=== PATIENT | female | born 1950 | race Caucasian/White ===

== ENCOUNTER 2020-07-11 12:00 | Observation (INO) ==
[2020-07-11 11:13] LABS: BUN/Creatinine Ratio 32 (6-26); Blood Urea Nitrogen 32 mg/dL (8-23); Calcium 10.4 mg/dL (8.6-10.3); Carbon Dioxide 25 mEq/L (23-29); Chloride 107 mEq/L (98-107); Glucose 119 mg/dL (70-105); Osmolality,Calculated 298 (280-300); Potassium 3.3 mEq/L (3.5-5.1); Sodium 140 mEq/L (136-145); eGFR For African Americans > 60 (> 60); eGFR For Non-African Americans 54 (> 60)
[~2020-07-11 12:00] MED LIST: *HR* HYDROcodone/Acet 5/325 mg TABLET PO PRN; *HR* Heparin 10,000 UNIT/10 ML VIAL ONE; 0.9 % Sodium Chloride 2,000 ML ONE; Albuterol Neb 0.63 MG/3 ML VIAL IH PRN; Aspirin 81 MG TAB.CHEW PO ONE; Aspirin desensitization 1 mg/ml PO ONE; Aspirin desensitization 4 mg/ml PO ONE; EPINEPHrine 1 MG/ML VIAL IM PRN; Famotidine 20 MG/2 ML VIAL IVP PRN; Heparin 1,000 UNITS/500 mL 500 ML ONE; ISOVUE-370 200 ML INFUS..BTL ONE; Loratadine 10 MG TABLET PO PRN; Nitroglycerin 0.4 MG TAB.SUBL SL PRN; Nitroglycerin 1,000 MCG/10 ML VIAL IV ONE; methylPREDNISolone 125 MG/2 ML VIAL IVP PRN
[2020-07-11] MEDS ORDERED: *HR* FentaNYL (PF) 100 MCG/2 ML VIAL ONE (12:02)
[2020-07-11] MEDS ORDERED: *HR* Midazolam HCl 2 MG/2 ML VIAL ONE (12:02)
[2020-07-11] MEDS ORDERED: *HR* Heparin 10,000 UNIT/10 ML VIAL ONE (12:05)
[2020-07-11] MEDS ORDERED: Acetaminophen 325 MG TABLET PO PRN (12:12)
[2020-07-11 12:14] VITALS: BP 142/62
[2020-07-11] MEDS ORDERED: EPINEPHrine 1 MG/ML VIAL IV PRN (17:07)
[2020-07-11] MEDS ORDERED: Budesonide/Formoterol 160/4.5 1 PUFF INH IH SCH (22:00)
[2020-07-12] MEDS ORDERED: Cholecalciferol (D-3) 1,000 UNIT (25MCG) TABLET PO SCH (09:00)
[2020-07-12] MEDS ORDERED: NON-FORMULARY MEDICATION 1 EACH EACH (Fluticasone/Umeclidin/Vilanter [Trelegy Ellipta 100- IH SCH (09:00)
[2020-07-12] MEDS ORDERED: (Roflumilast [Daliresp] 500 MCG Tablet) PO SCH (09:00)
[2020-07-12] MEDS ORDERED: Tiotropium 10 INH DOSE IH SCH (10:00)
== END 2020-07-11 17:08 | disposition home or self-care (01) ==
LOC: ICNU → EDSTATUS 12:00 → ICNU 15:45
PROVIDERS: ADMIT Internal Medicine Cardiovascular Disease; ATTEND Internal Medicine Cardiovascular Disease